=== PATIENT | female | born 1945 | race Caucasian/White ===

== ENCOUNTER → 2016-09-16 | Outpatient (REF) | payer OTHER ==
[2016-09-16 19:55] LABS: FREE T4 0.86 NG/DL (0.76-1.46)
== END ==
LOC: M LAB REF 16:57
PROVIDERS: ATTEND Internal Medicine Nephrology
DX: E03.9 Hypothyroidism, unspecified (principal)

== ENCOUNTER → 2017-10-30 | Outpatient (REF) | payer OTHER ==
[2017-10-30 11:08] LABS: BASO % 0.3 % (0.0-1.0); EOS # 0.1 10^3/uL (0.0-0.50); EOS % 1.6 % (0.0-3.0); HEMATOCRIT 36.7 % (36.0-47.0); HEMOGLOBIN 12.5 g/dl (12.0-15.5); IMMATURE GRANULOCYTE % 0.4 % (0-3.0); LYMPH # 2.3 10^3/uL (1.5-4.5); LYMPH % 30.9 % (24.0-44.0); MEAN CORPUSCULAR HEMOGLOBIN 29.6 pg (27.0-33.0); MEAN CORPUSCULAR HGB CONC 34.1 g/dl (32.0-36.5); MONO # 0.6 10^3/uL (0.0-0.8); MONO % 7.3 % (0.0-5.0); NEUTROPHILS # 4.5 10^3/uL (1.8-7.7); NEUTROPHILS % 59.5 % (36.0-66.0); PLATELET COUNT, AUTOMATED 273 10^3/uL (150-450); RED BLOOD COUNT 4.22 10^6/uL (4.00-5.40); RED CELL DISTRIBUTION WIDTH 12.1 % (11.5-14.5); WHITE BLOOD COUNT 7.5 10^3/uL (4.0-10.0)
[2017-10-30 11:40] LABS: ERYTHROCYTE SEDIMENTATION RATE 46 mm/hr (0-30)
[2017-10-30 11:43] LABS: RHEUMATOID FACTOR QUANT < 10.0 IU/ML (<15.0)
[2017-10-30 11:43] LABS: URIC ACID 3.8 MG/DL (2.6-6.0)
[2017-10-31 14:11] LABS: ANTINUCLEAR ANTIBODIES DIRECT Negative (Negative); Lyme Disease IgG/IgM Antibodie <0.91 ISR (0.00-0.90); Lyme Disease IgM Ab Quantitati <0.80 index (0.00-0.79)
== END ==
LOC: M LABDRAW1 10:37
DX: S93.402A Sprain of unspecified ligament of left ankle, initial encounter (principal); X58.XXXA Exposure to other specified factors, initial encounter; Y92.89 Other specified places as the place of occurrence of the external cause; Y99.9 Unspecified external cause status; Y93.89 Activity, other specified
CPT/HCPCS: 84550

== ENCOUNTER → 2017-11-06 | Outpatient (CLI) | payer OTHER | LOC: M RAD 09:55 | DX: S93.402A Sprain of unspecified ligament of left ankle, initial encounter (principal); X58.XXXA Exposure to other specified factors, initial encounter; Y92.9 Unspecified place or not applicable; Y93.9 Activity, unspecified; Y99.9 Unspecified external cause status | CPT/HCPCS: 73700 ==

== ENCOUNTER 2017-11-11 15:37 | Observation (INO) | payer OTHER ==
[2017-11-11 16:56] LABS: BASO % 0.2 % (0.0-1.0); EOS # 0.1 10^3/uL (0.0-0.50); EOS % 1.2 % (0.0-3.0); HEMATOCRIT 34.2 % (36.0-47.0); HEMOGLOBIN 11.7 g/dl (12.0-15.5); IMMATURE GRANULOCYTE % 0.2 % (0-3.0); LYMPH # 2.7 10^3/uL (1.5-4.5); LYMPH % 31.6 % (24.0-44.0); MEAN CORPUSCULAR HEMOGLOBIN 30.1 pg (27.0-33.0); MEAN CORPUSCULAR HGB CONC 34.2 g/dl (32.0-36.5); MEAN CORPUSCULAR VOLUME 87.9 fl (80.0-96.0); MONO # 0.8 10^3/uL (0.0-0.8); MONO % 8.9 % (0.0-5.0); NEUTROPHILS % 57.9 % (36.0-66.0); PLATELET COUNT, AUTOMATED 234 10^3/uL (150-450); RED BLOOD COUNT 3.89 10^6/uL (4.00-5.40); RED CELL DISTRIBUTION WIDTH 12.3 % (11.5-14.5); WHITE BLOOD COUNT 8.6 10^3/uL (4.0-10.0)
[2017-11-11 17:24] LABS: INR 1.42; PROTHROMBIN TIME 17.7 SECONDS (12.4-14.5)
[2017-11-11 17:25] LABS: PARTIAL THROMBOPLASTIN TIME 37.4 SECONDS (26.8-37.9)
[2017-11-11 17:28] LABS: ALBUMIN 3.9 GM/DL (3.2-5.2); ALBUMIN/GLOBULIN RATIO 1.22 (1.00-1.93); ALKALINE PHOSPHATASE 144 U/L (45-117); ALT/SGPT 31 U/L (12-78); ANION GAP 9 MEQ/L (8-16); AST/SGOT 31 U/L (7-37); BILIRUBIN,DIRECT 0.1 MG/DL (0.0-0.2); BILIRUBIN,TOTAL 0.3 MG/DL (0.2-1.0); BLOOD UREA NITROGEN 34 MG/DL (7-18); CALCIUM LEVEL 9.4 MG/DL (8.8-10.2); CARBON DIOXIDE LEVEL 29 MEQ/L (21-32); CHLORIDE LEVEL 103 MEQ/L (98-107); CREATININE FOR GFR 1.42 MG/DL (0.55-1.30); GLOMERULAR FILTRATION RATE 38.5 (>39); GLUCOSE, FASTING 191 MG/DL (70-100); POTASSIUM SERUM 3.6 MEQ/L (3.5-5.1); SODIUM LEVEL 141 MEQ/L (136-145); TOTAL PROTEIN 7.1 GM/DL (6.4-8.2)
[2017-11-11] MEDS ORDERED: GLUCAGON FOR INJ 1 MG VIAL (J1610) SC (20:00)
[2017-11-11] MEDS ORDERED: DEXTROSE 50% 50 ML SYRINGE IV (20:00)
[2017-11-11] MEDS ORDERED: GLUCOSE 4 GM CHEW TABLET PO (20:00)
[2017-11-11] MEDS ORDERED: ONDANSETRON 4MG/2ML VIAL (J2405) IV (20:00)
[2017-11-11] MEDS ORDERED: PILL CRUSHER/CUTTER 1 EACH XX (20:15)
[2017-11-11 20:38] LABS: CK-MB VALUE MASS 1.7 NG/ML (<3.6); CPK CREATINE PHOSPHOKINASE 92 U/L (26-192); MB/CK RELATIVE INDEX 1.84 (< OR =4); TROPONIN I < 0.02 NG/ML (< 0.10)
[2017-11-11] MEDS: HumaLOG INSULIN (NovoLOG) PER UNIT SC (21:00)
[2017-11-11] MEDS: cefTRIAXone SOD 1 GM in D5W MINI-BAG PLUS 50 ML IV (21:50)
[2017-11-11] MEDS ORDERED: SLF 3 ML SYR IV (22:45)
[2017-11-11] MEDS: SERTRALINE 100 MG TAB PO (23:06)
[2017-11-11] MEDS: ROSUVASTATIN 10 MG TAB (CRESTOR) PO (23:06)
[2017-11-11] MEDS: DOXYCYCLINE HYCLATE 100 MG in D5W MINI-BAG PLUS 100 ML IV (23:06)
[2017-11-11] MEDS: SENOKOT S TAB PO (23:06)
[2017-11-11] MEDS: PANTOPRAZOLE 40MG INJ (PROTONIX) (C9113) IV (23:06)
[2017-11-11] MEDS: SOTALOL HCL 80 MG TAB PO (23:08)
[2017-11-11 23:29] LABS: BEDSIDE GLUCOSE 102 MG/DL (83-110)
[2017-11-12 02:11] LABS: CK-MB VALUE MASS 1.2 NG/ML (<3.6); CPK CREATINE PHOSPHOKINASE 75 U/L (26-192); TROPONIN I < 0.02 NG/ML (< 0.10)
[2017-11-12 04:55] LABS: HEMATOCRIT 33.9 % (36.0-47.0); HEMOGLOBIN 11.4 g/dl (12.0-15.5); MEAN CORPUSCULAR HEMOGLOBIN 29.3 pg (27.0-33.0); MEAN CORPUSCULAR HGB CONC 33.6 g/dl (32.0-36.5); MEAN CORPUSCULAR VOLUME 87.1 fl (80.0-96.0); PLATELET COUNT, AUTOMATED 210 10^3/uL (150-450); RED BLOOD COUNT 3.89 10^6/uL (4.00-5.40); RED CELL DISTRIBUTION WIDTH 12.3 % (11.5-14.5); WHITE BLOOD COUNT 7.8 10^3/uL (4.0-10.0)
[2017-11-12 05:10] LABS: ANION GAP 8 MEQ/L (8-16); BLOOD UREA NITROGEN 28 MG/DL (7-18); C REACTIVE PROTEIN QUANTITATIV 0.43 MG/DL (0.00-0.30); CALCIUM LEVEL 9.2 MG/DL (8.8-10.2); CARBON DIOXIDE LEVEL 26 MEQ/L (21-32); CHLORIDE LEVEL 107 MEQ/L (98-107); CREATININE FOR GFR 1.25 MG/DL (0.55-1.30); GLOMERULAR FILTRATION RATE 44.6 (>39); GLUCOSE, FASTING 125 MG/DL (70-100); POTASSIUM SERUM 3.7 MEQ/L (3.5-5.1); SODIUM LEVEL 141 MEQ/L (136-145)
[2017-11-12] MEDS: SLF 3 ML SYR IV ×2 (06:11→13:51)
[2017-11-12] MEDS: VITAMIN D 1,000 INTERNATIONAL UNITS TABLET PO (08:23)
[2017-11-12] MEDS: HumaLOG INSULIN (NovoLOG) PER UNIT SC ×2 (08:23→11:55)
[2017-11-12] MEDS: FUROSEMIDE 40 MG TAB PO (08:23)
[2017-11-12] MEDS: SENOKOT S TAB PO (08:23)
[2017-11-12] MEDS: FEBUXOSTAT 40 MG TABLET (ULORIC) PO (08:23)
[2017-11-12] MEDS: SOTALOL HCL 80 MG TAB PO (08:23)
[2017-11-12] MEDS: TICAGRELOR 90 MG TABLET (BRILINTA) PO (08:23)
[2017-11-12] MEDS: PANTOPRAZOLE 40MG INJ (PROTONIX) (C9113) IV (08:24)
[2017-11-12] MEDS: DOXYCYCLINE HYCLATE 100 MG in D5W MINI-BAG PLUS 100 ML IV (09:48)
[2017-11-12 11:02] LABS: HEMATOCRIT 36.1 % (36.0-47.0); HEMOGLOBIN 12.4 g/dl (12.0-15.5)
[2017-11-12 11:13] LABS: BEDSIDE GLUCOSE 196 MG/DL (83-110)
== END 2017-11-12 16:45 | disposition home or self-care (01) ==
LOC: M ED 15:37 → M ED INP 19:58 → M PCU 22:22
DX: K06.8 Other specified disorders of gingiva and edentulous alveolar ridge (principal); K92.1 Melena; L03.116 Cellulitis of left lower limb; J45.909 Unspecified asthma, uncomplicated; M79.662 Pain in left lower leg; K21.9 Gastro-esophageal reflux disease without esophagitis; I25.10 Atherosclerotic heart disease of native coronary artery without angina pectoris; E78.4 Other hyperlipidemia; I48.91 Unspecified atrial fibrillation; I12.9 Hypertensive chronic kidney disease with stage 1 through stage 4 chronic kidney disease, or unspecified chronic kidney disease; E11.9 Type 2 diabetes mellitus without complications; N18.9 Chronic kidney disease, unspecified; Z79.02 Long term (current) use of antithrombotics/antiplatelets; Z79.899 Other long term (current) drug therapy; Z88.2 Allergy status to sulfonamides; Z91.041 Radiographic dye allergy status
CPT/HCPCS: C9113

== ENCOUNTER → 2022-08-08 | Outpatient (REF) | payer MEDICARE ==
[~2022-08-08] MED LIST: BRIL90TA PO; CART120C PO; DOXY-444 PO; FURO40TA2 PO; GLIM2TAB4 PO; NITR0.4S14 SL; OMEP40CA4 PO; RANI300T PO; ROSU20TA5 PO; SERT-138 PO; SOTA120T PO; ULOR80TA PO; VICT18IN SC; VITA100066 PO; XARE15TA PO
[2022-08-08 19:07] LABS: TOTAL PROTEIN,RANDOM URINE 39.9 MG/DL (0.0-14.0)
[2022-08-08 19:12] LABS: CREATININE,RANDOM URINE 67.4 MG/DL
== END ==
LOC: M LAB REF 16:55
PROVIDERS: ATTEND Internal Medicine Nephrology
DX: E11.22 Type 2 diabetes mellitus with diabetic chronic kidney disease (principal)

== ENCOUNTER → 2023-02-26 | Outpatient (CLI) | payer MEDICARE ==
[~2023-02-26] MED LIST changes: -ROSU20TA5 PO; +ROSU20TA61 PO
== END ==
LOC: M PLAIMG 13:00
PROVIDERS: ATTEND Otolaryngology
DX: J32.0 Chronic maxillary sinusitis (principal); R93.0 Abnormal findings on diagnostic imaging of skull and head, not elsewhere classified